=== PATIENT | male | born 1995 | race African-American/Black ===

== ENCOUNTER 2021-05-22 01:22 | Emergency (ER) | payer MEDICAID ==
[~2021-05-22] VITALS: Ht 167.6 cm; Wt 63.0 kg
[2021-05-22 01:30] VITALS: BP 157/124
== END 2021-05-22 02:57 | disposition home or self-care (01) ==
LOC: ER 01:22
DX: S09.8XXA Other specified injuries of head, initial encounter (principal); E11.9 Type 2 diabetes mellitus without complications; X58.XXXA Exposure to other specified factors, initial encounter; Y93.89 Activity, other specified; Y92.89 Other specified places as the place of occurrence of the external cause; Z88.8 Allergy status to other drugs, medicaments and biological substances
CPT/HCPCS: 99281